=== PATIENT | male | born 1990 | race Caucasian/White ===

== ENCOUNTER 2021-07-14 11:36 | Emergency (ER) | payer OTHER ==
[~2021-07-14] VITALS: Ht 175.3 cm; Wt 81.7 kg
[~2021-07-14 11:36] MED LIST: VENL25
== END 2021-07-14 11:51 | disposition home or self-care (01) ==
LOC: ER 11:36
DX: F32.9 Major depressive disorder, single episode, unspecified (principal); Z76.0 Encounter for issue of repeat prescription; F17.210 Nicotine dependence, cigarettes, uncomplicated
CPT/HCPCS: 99281

== ENCOUNTER 2021-08-27 13:31 | Emergency (ER) | payer OTHER ==
[~2021-08-27] VITALS: Ht 177.8 cm; Wt 102.1 kg
[2021-08-27] MEDS ORDERED: VENL75ER PO (13:40)
== END 2021-08-27 13:41 | disposition home or self-care (01) ==
LOC: ER 13:31
DX: F32.9 Major depressive disorder, single episode, unspecified (principal); Z76.0 Encounter for issue of repeat prescription; F17.210 Nicotine dependence, cigarettes, uncomplicated; Z79.899 Other long term (current) drug therapy
CPT/HCPCS: 99281